=== PATIENT | male | born 1995 | race Two or more races ===

== ENCOUNTER 2023-11-14 05:20 | Day surgery (SDC) | payer OTHER ==
[2023-11-14] MEDS ORDERED: ANESTHESIA TRAY IN PYXIS 1 EA TRAY MC ONE (05:58)
[2023-11-14] MEDS ORDERED: BUPIVACAINE 0.5 % PF 150 MG/30 ML VIAL ONE (05:58)
[2023-11-14] MEDS ORDERED: MIDAZOLAM HCL 2 MG/2ML VIAL ONE (06:10)
[2023-11-14] MEDS ORDERED: FENTANYL PF 100MCG/2ML AMPUL ONE (06:10)
[2023-11-14] MEDS ORDERED: LABETALOL HCL IV 100MG VIAL ONE (07:14)
== END 2023-11-14 10:42 | disposition home or self-care (01) ==
LOC: DS 05:20
PROVIDERS: ATTEND Specialist
DX: M17.12 Unilateral primary osteoarthritis, left knee (principal)
CPT/HCPCS: 29877; A4217; J0690; J1100; J1885; J2250; J2405; J2704; J3010; J3490; J7030